=== PATIENT | female | born 1970 | race African-American/Black ===

== ENCOUNTER 2017-01-24 15:26 | Inpatient (IN) | payer MEDICAID ==
[~2017-01-24] VITALS: Ht 165.1 cm; Wt 65.5 kg
[~2017-01-24 15:26] MED LIST: ALBUAER3 IN; ALPR0.5T7 PO; BACL10TA PO; CARI-277 PO; DULO60CA PO; ESCI20TA51 PO; FENT25DI2 TD; GABA-494 PO; MELO-85 PO; NIC21P TD; PERCOT PO; QUET200T3 PO
[2017-01-24 16:05] LABS: DEFINITIVE VIEW TRANSMISSION; Hematocrit 41.5 % (36.0-46.0); Hemoglobin 13.6 g/dL (12.2-16.2); Mean Corpuscular Hemoglobin 26.4 pg (28.0-32.0); Mean Corpuscular Hgb Conc. 32.9 g/dL (32.0-36.0); Mean Corpuscular Volume 80.2 fL (80.0-100.0); Mean Platelet Volume 8.9 fL (7.4-10.4); Platelet Count (auto) 256 10^3/uL (140-450); Red Cell Distribution Width 13.6 % (11.6-16.0); SUSPECT VIEW TRANSMISSION; White Blood Cell 14.8 10^3/uL (4.4-10.8)
[2017-01-24] MEDS ORDERED: ALBUTEROL SULF 2.5 MG/0.5ML(0.5%) NEB SOLN HHN STA (16:05)
[2017-01-24 16:12] LABS: Metamyelocytes % 0; Myelocytes % 0; Promyelocytes % 0; Reactive Lymphocytes 0
[2017-01-24] MEDS ORDERED: methylPREDNISolone SOD SUCC 125 MG/2 ML VL IV ONE (16:15)
[2017-01-24] MEDS ORDERED: IPRATROPIUM BROM 0.5 MG/2.5ML INH SOL NEB ONE (16:15)
[2017-01-24 16:27] LABS: Albumin 4.2 g/dL (3.4-5.0); Anion Gap 12 (5-15); BUN/Creatinine Ratio 7.7; Blood Urea Nitrogen 6 mg/dL (7-18); Calcium 8.8 mg/dL (8.5-10.1); Carbon Dioxide 23 mmol/L (21-32); Chloride 106 mmol/L (98-107); GFR African American 102 mL/min; GFR Non-African American 84 mL/min; Glucose 106 mg/dL (74-106); Magnesium 2.2 mg/dL (1.6-2.6); Potassium 3.5 mmol/L (3.5-5.1); Sodium 141 mmol/L (136-145)
[2017-01-24 16:32] LABS: Alkaline Phosphatase 108 U/L (45-117); Aspartate Aminotransferase 15 U/L (15-37); Total Protein 8.4 g/dL (6.4-8.2)
[2017-01-24 17:31] LABS: Hypochromia Slight; Platelet Estimate Adequate
[2017-01-24] MEDS ORDERED: IPRATROPIUM BROM 0.5 MG/2.5ML INH SOL NEB PRN (19:00)
[2017-01-24] MEDS ORDERED: SODIUM CHLORIDE 0.9% 1,000 ML IV SCH (19:00)
[2017-01-24] MEDS ORDERED: ALBUTEROL SULF 2.5 MG/0.5ML(0.5%) NEB SOLN NEB PRN (19:00)
[2017-01-24] MEDS ORDERED: cefTRIAXone 1GM/50ML D5W 50 ML IV ONE (19:15)
[2017-01-24] MEDS ORDERED: ACETAMINOPHEN 325 MG TAB PO PRN (19:15)
[2017-01-24] MEDS ORDERED: SODIUM CHLORIDE 0.9% 1,000 ML IV ONE (19:15)
[2017-01-24] MEDS ORDERED: LORazepam 2MG/ML-1ML VIAL IV PRN (19:15)
[2017-01-24 19:50] LABS: Urine Bilirubin Negative (Negative); Urine Blood Negative /uL (Negative); Urine Color Yellow (Yellow); Urine Glucose Normal (Normal); Urine Nitrite Negative (Negative); Urine RBC <1 /hpf (0 - 4); Urine Squamous Epithelial Cell FEW /hpf (<5); Urine Urobilinogen Normal (Negative)
[2017-01-24 19:51] LABS: Urine Ketone 1+ (Negative)
[2017-01-24 21:44] VITALS: BP 124/83
[2017-01-24] MEDS: ALPRAZolam 0.5 MG TAB PO SCH (22:00)
[2017-01-24] MEDS ORDERED: BACLOFEN 10 MG TAB PO PRN (22:00)
[2017-01-24] MEDS: OXYCODONE W/ ACETAMINOPHEN 5/325MG TABLET PO SCH (22:00)
[2017-01-24] MEDS: GABAPENTIN 100 MG CAP PO SCH (22:00)
[2017-01-24] MEDS: CARISOPRODOL 350 MG TAB PO SCH (22:00)
[2017-01-24] MEDS ORDERED: MELOXICAM 7.5 MG PO PRN (22:00)
[2017-01-25 00:03] LABS: Lactic Acid w/Reflex 3.4 mmol/L (0.4-2.0)
[2017-01-25 00:07] LABS: REFLEX LACTIC ACID YES OR NO NO
[2017-01-25] MEDS: OXYCODONE W/ ACETAMINOPHEN 5/325MG TABLET PO SCH ×2 (05:40→14:08)
[2017-01-25] MEDS: GABAPENTIN 100 MG CAP PO SCH ×3 (05:40→14:08)
[2017-01-25] MEDS: CARISOPRODOL 350 MG TAB PO SCH ×3 (05:41→22:35)
[2017-01-25] MEDS: ALBUTEROL SULF 2.5 MG/0.5ML(0.5%) NEB SOLN NEB PRN ×2 (06:10→18:07)
[2017-01-25] MEDS: IPRATROPIUM BROM 0.5 MG/2.5ML INH SOL NEB PRN ×2 (06:10→18:07)
[2017-01-25 06:29] LABS: Basophils # (auto) 0 uL; Basophils % (auto) 0.4 % (0.0-2.0); DEFINITIVE VIEW TRANSMISSION; Eosinophils # (auto) 0 uL; Eosinophils % (auto) 0.1 % (0.0-7.0); Hematocrit 40.6 % (36.0-46.0); Hemoglobin 13.3 g/dL (12.2-16.2); Mean Corpuscular Hemoglobin 26.3 pg (28.0-32.0); Mean Corpuscular Hgb Conc. 32.8 g/dL (32.0-36.0); Mean Corpuscular Volume 80.4 fL (80.0-100.0); Mean Platelet Volume 9.4 fL (7.4-10.4); Monocytes # (auto) 0.1 uL; Monocytes % (auto) 1.1 % (0.0-12.0); Neutrophils # (auto) 10.7 uL; Neutrophils % (auto) 90.4 % (37.0-80.0); Platelet Count (auto) 259 10^3/uL (140-450); Red Cell Distribution Width 13.8 % (11.6-16.0); White Blood Cell 11.9 10^3/uL (4.4-10.8)
[2017-01-25 06:35] LABS: BUN/Creatinine Ratio 10.4; Calcium 9.5 mg/dL (8.5-10.1)
[2017-01-25] MEDS ORDERED: cefTRIAXone 1GM/50ML D5W 50 ML IV SCH (09:00)
[2017-01-25] MEDS ORDERED: PATIENTS OWN MEDICATION (Duloxetine Hcl (Cymbalta) 1 CAP) PO SCH (10:00)
[2017-01-25] MEDS ORDERED: VANCOMYCIN 1GM/250ML D5W 250 ML IV SCH (10:00)
[2017-01-25] MEDS ORDERED: PATIENTS OWN MEDICATION (Escitalopram Oxalate 1 TAB) PO SCH (10:00)
[2017-01-25] MEDS ORDERED: DULoxetine HCL 30 MG CAP PO SCH (10:00)
[2017-01-25] MEDS: ALPRAZolam 0.5 MG TAB PO SCH ×2 (10:26→22:34)
[2017-01-25] MEDS: PANTOPRAZOLE SODIUM 40 MG/10 ML VIAL IV SCH (10:26)
[2017-01-25] MEDS: CITALOPRAM HYDROBR 20 MG TAB PO SCH (10:26)
[2017-01-25] MEDS: VANCOMYCIN 1GM/250ML D5W 250 ML IV SCH ×2 (10:26→22:34)
[2017-01-25] MEDS: ENOXAPARIN SOD 40 MG/0.4 ML SYRINGE SC SCH (10:27)
[2017-01-25] MEDS: NICOTINE 21MG/24 HR TOPICAL PATCH TD SCH (10:27)
[2017-01-25 14:35] VITALS: BP 123/80
[2017-01-25] MEDS ORDERED: [UNRECOGNIZED DRUG - CODE] PO (15:36)
[2017-01-25] MEDS ORDERED: CYCL1TAB18 PO (15:37)
[2017-01-25] MEDS ORDERED: METF-312 PO (15:41)
[2017-01-25] MEDS ORDERED: CHOL200031 PO (15:41)
[2017-01-25] MEDS ORDERED: UMEC1INH IN (15:41)
[2017-01-25] MEDS ORDERED: GABA300C8 PO (15:41)
[2017-01-25] MEDS ORDERED: QUET400T12 PO (15:41)
[2017-01-25 16:00] VITALS: BP_SYST 123; BP_SYST 134; BP_DIAS 73; BP_DIAS 80
[2017-01-25] MEDS ORDERED: OXYCODONE W/ ACETAMINOPHEN 5/325MG TABLET PO PRN (16:00)
[2017-01-25] MEDS ORDERED: LACTULOSE 20Gm/30ML SOLN PO ONE (16:00)
[2017-01-25] MEDS: LACTULOSE 20Gm/30ML SOLN PO SCH (16:59)
[2017-01-25] MEDS ORDERED: QUETIAPINE FUMERATE PO SCH (18:00)
[2017-01-25] MEDS: BUDESONIDE (INHALATION) 0.5 MG/2 ML NEB NEB SCH (18:09)
[2017-01-25 20:00] VITALS: BP 115/66
[2017-01-25] MEDS: QUEtiapine FUMARATE 100 MG TAB PO SCH (22:34)
[2017-01-25] MEDS: GABAPENTIN 300 MG CAP PO SCH (22:35)
[2017-01-26 05:00] VITALS: BP 123/70
[2017-01-26] MEDS: LACTULOSE 20Gm/30ML SOLN PO SCH ×4 (06:00→17:40)
[2017-01-26 06:34] LABS: Albumin 3.3 g/dL (3.4-5.0); Calcium 8.6 mg/dL (8.5-10.1); Potassium 3.6 mmol/L (3.5-5.1)
[2017-01-26] MEDS: CARISOPRODOL 350 MG TAB PO SCH ×3 (06:36→21:52)
[2017-01-26 06:37] LABS: BUN/Creatinine Ratio 19.1
[2017-01-26 06:39] LABS: Bilirubin, Total 0.3 mg/dL (0.2-1.0); Total Protein 7.3 g/dL (6.4-8.2)
[2017-01-26] MEDS: BUDESONIDE (INHALATION) 0.5 MG/2 ML NEB NEB SCH ×2 (07:33→19:30)
[2017-01-26 09:00] VITALS: BP 112/84
[2017-01-26] MEDS: PANTOPRAZOLE SODIUM 40 MG/10 ML VIAL IV SCH (09:53)
[2017-01-26] MEDS: NICOTINE 21MG/24 HR TOPICAL PATCH TD SCH (09:53)
[2017-01-26] MEDS: CITALOPRAM HYDROBR 20 MG TAB PO SCH (09:53)
[2017-01-26] MEDS: ALPRAZolam 0.5 MG TAB PO SCH ×2 (09:53→21:52)
[2017-01-26] MEDS: ENOXAPARIN SOD 40 MG/0.4 ML SYRINGE SC SCH (09:53)
[2017-01-26] MEDS: GABAPENTIN 300 MG CAP PO SCH ×2 (09:53→21:52)
[2017-01-26] MEDS: VANCOMYCIN 1GM/250ML D5W 250 ML IV SCH (09:56)
[2017-01-26 12:53] VITALS: BP 109/70
[2017-01-26 16:53] VITALS: BP 103/67
[2017-01-26] MEDS: ALBUTEROL SULF 2.5 MG/0.5ML(0.5%) NEB SOLN NEB PRN (19:30)
[2017-01-26] MEDS: IPRATROPIUM BROM 0.5 MG/2.5ML INH SOL NEB PRN (19:30)
[2017-01-26] MEDS: QUEtiapine FUMARATE 100 MG TAB PO SCH (21:52)
[2017-01-26 21:58] VITALS: BP 111/77
[2017-01-26] MEDS ORDERED: DOXYCYCLINE 100 MG TAB/CAP PO SCH (22:00)
[2017-01-27 05:14] VITALS: BP 106/22
[2017-01-27] MEDS: LACTULOSE 20Gm/30ML SOLN PO SCH ×4 (06:00→18:26)
[2017-01-27] MEDS: ALBUTEROL SULF 2.5 MG/0.5ML(0.5%) NEB SOLN NEB PRN ×2 (06:04→21:47)
[2017-01-27] MEDS: BUDESONIDE (INHALATION) 0.5 MG/2 ML NEB NEB SCH ×2 (06:04→21:47)
[2017-01-27] MEDS: IPRATROPIUM BROM 0.5 MG/2.5ML INH SOL NEB PRN ×2 (06:04→21:47)
[2017-01-27] MEDS: CARISOPRODOL 350 MG TAB PO SCH ×3 (06:43→22:32)
[2017-01-27 09:00] VITALS: BP 105/76
[2017-01-27] MEDS: PANTOPRAZOLE 40 MG TAB PO SCH (10:26)
[2017-01-27] MEDS: CITALOPRAM HYDROBR 20 MG TAB PO SCH (10:26)
[2017-01-27] MEDS: NICOTINE 21MG/24 HR TOPICAL PATCH TD SCH (10:27)
[2017-01-27] MEDS: GABAPENTIN 300 MG CAP PO SCH ×2 (10:27→22:32)
[2017-01-27] MEDS: ALPRAZolam 0.5 MG TAB PO SCH ×2 (10:27→22:32)
[2017-01-27] MEDS: ENOXAPARIN SOD 40 MG/0.4 ML SYRINGE SC SCH (10:27)
[2017-01-27] MEDS: DOXYCYCLINE 100 MG TAB/CAP PO SCH ×2 (10:27→22:31)
[2017-01-27 13:00] VITALS: BP 102/61
[2017-01-27 17:30] VITALS: BP 113/76
[2017-01-27 21:30] VITALS: BP 128/65
[2017-01-27 21:49] VITALS: BP 113/76
[2017-01-27] MEDS: QUEtiapine FUMARATE 100 MG TAB PO SCH (22:31)
[2017-01-28 04:30] VITALS: BP 107/74
[2017-01-28] MEDS: LACTULOSE 20Gm/30ML SOLN PO SCH ×3 (06:06→12:00)
[2017-01-28] MEDS: CARISOPRODOL 350 MG TAB PO SCH ×2 (06:06→14:00)
[2017-01-28] MEDS: ALBUTEROL SULF 2.5 MG/0.5ML(0.5%) NEB SOLN NEB PRN ×3 (06:30→11:14)
[2017-01-28] MEDS: IPRATROPIUM BROM 0.5 MG/2.5ML INH SOL NEB PRN ×3 (06:30→11:14)
[2017-01-28] MEDS: BUDESONIDE (INHALATION) 0.5 MG/2 ML NEB NEB SCH (06:31)
[2017-01-28 09:00] VITALS: BP 99/64
[2017-01-28] MEDS: CITALOPRAM HYDROBR 20 MG TAB PO SCH (09:58)
[2017-01-28] MEDS: ALPRAZolam 0.5 MG TAB PO SCH (09:59)
[2017-01-28] MEDS: DOXYCYCLINE 100 MG TAB/CAP PO SCH (09:59)
[2017-01-28] MEDS: GABAPENTIN 300 MG CAP PO SCH (09:59)
[2017-01-28] MEDS: PANTOPRAZOLE 40 MG TAB PO SCH (09:59)
[2017-01-28] MEDS: NICOTINE 21MG/24 HR TOPICAL PATCH TD SCH (10:00)
[2017-01-28 11:22] VITALS: BP 99/64
[2017-01-28 13:00] VITALS: BP 107/73
== END 2017-01-28 14:20 | disposition home or self-care (01) | DRG 720 ==
LOC: ER 15:27 → TELE 15:28 → SUATTDRO 18:18 → DOU IN ICU 01-25 14:30 → TELE-WESTW 01-25 21:50
PROVIDERS: ADMIT Nurse Practitioner Acute Care; ATTEND Internal Medicine
DX: A41.9 Sepsis, unspecified organism (principal); J18.9 Pneumonia, unspecified organism; J44.0 Chronic obstructive pulmonary disease with (acute) lower respiratory infection; J44.1 Chronic obstructive pulmonary disease with (acute) exacerbation; F32.9 Major depressive disorder, single episode, unspecified; F41.9 Anxiety disorder, unspecified; M19.90 Unspecified osteoarthritis, unspecified site; J20.9 Acute bronchitis, unspecified; E11.9 Type 2 diabetes mellitus without complications; F17.210 Nicotine dependence, cigarettes, uncomplicated; G89.4 Chronic pain syndrome; J06.9 Acute upper respiratory infection, unspecified; M48.00 Spinal stenosis, site unspecified; B96.89 Other specified bacterial agents as the cause of diseases classified elsewhere; M51.9 Unspecified thoracic, thoracolumbar and lumbosacral intervertebral disc disorder; Z79.899 Other long term (current) drug therapy; Z82.3 Family history of stroke; Z82.49 Family history of ischemic heart disease and other diseases of the circulatory system; Z83.3 Family history of diabetes mellitus; Z82.5 Family history of asthma and other chronic lower respiratory diseases; Z98.49 Cataract extraction status, unspecified eye
CPT/HCPCS: 36415; 36600; 51702; 71010; 80048; 80053; 81001; 81025; 82805; 83036; 83605; 83735; 84484; 85007; 85025; 85027; 87040; 87081; 87086; 93005; 94640; 96365; 96372; 96375; C9113; J0696

== ENCOUNTER 2017-03-26 12:37 | Emergency (ER) | payer MEDICAID ==
[~2017-03-26] VITALS: Ht 154.9 cm; Wt 66.2 kg
[~2017-03-26 12:37] MED LIST changes: +CHOL200031 PO; +CYCL1TAB18 PO; -GABA-494 PO; +GABA-497 PO; +METF-370 PO; +OXYC-102 PO; -PERCOT PO; -QUET200T3 PO; +QUET400T12 PO; +UMEC1INH IN
[2017-03-26 12:55] VITALS: BP 128/74
== END 2017-03-26 15:11 | disposition home or self-care (01) ==
LOC: ER 12:37
DX: M13.841 Other specified arthritis, right hand (principal); F17.210 Nicotine dependence, cigarettes, uncomplicated; F12.10 Cannabis abuse, uncomplicated; J45.909 Unspecified asthma, uncomplicated; J44.9 Chronic obstructive pulmonary disease, unspecified; E11.9 Type 2 diabetes mellitus without complications; Z88.1 Allergy status to other antibiotic agents; Z79.899 Other long term (current) drug therapy

== ENCOUNTER 2017-07-19 18:34 | Emergency (ER) | payer MEDICAID ==
[~2017-07-19] VITALS: Ht 170.2 cm; Wt 59.0 kg
[2017-07-19 21:08] LABS: Hemoglobin 13.9 g/dL (12.2-16.2)
[2017-07-19 21:20] LABS: Basophils # (auto) 0.1 uL; Basophils % (auto) 0.9 % (0.0-2.0); Eosinophils # (auto) 0.2 uL; Eosinophils % (auto) 2.8 % (0.0-7.0); Hematocrit 41.1 % (36.0-46.0); Lymphocytes # (auto) 2.8 uL; Lymphocytes % (auto) 32.5 % (10.0-50.0); Mean Corpuscular Hemoglobin 27.6 pg (28.0-32.0); Mean Corpuscular Hgb Conc. 33.8 g/dL (32.0-36.0); Mean Corpuscular Volume 81.8 fL (80.0-100.0); Mean Platelet Volume 8.9 fL (6.9-10.8); Monocytes # (auto) 0.7 uL; Monocytes % (auto) 7.9 % (0.0-12.0); Neutrophils # (auto) 4.8 uL; Neutrophils % (auto) 55.9 % (37.0-80.0); Platelet Count (auto) 256 10^3/uL (140-450); Red Cell Distribution Width 13.8 % (11.8-14.3); White Blood Cell 8.6 10^3/uL (4.4-10.8)
[2017-07-19 21:41] LABS: Albumin 4.3 g/dL (3.4-5.0); Bilirubin, Total 0.6 mg/dL (0.2-1.0); Calcium 9.5 mg/dL (8.5-10.1); Potassium 3.8 mmol/L (3.5-5.1); Total Protein 8.5 g/dL (6.4-8.2)
[2017-07-20] MEDS ORDERED: KETOROLAC TROMETH 60MG/2ML VIAL IM ONE
[2017-07-20] MEDS ORDERED: ONDANSETRON ODT 4 MG TAB PO ONE
[2017-07-20] MEDS ORDERED: HYDROmorphone HCL 2 MG/ML VL IM ONE
[2017-07-20 01:02] LABS: Urine Bilirubin Negative (Negative); Urine Blood Negative /uL (Negative); Urine Color Yellow (Yellow); Urine Glucose Normal (Normal); Urine Ketone TRACE (Negative); Urine Mucus FEW (None Seen); Urine Nitrite Negative (Negative); Urine RBC 1 /hpf (0 - 4); Urine Squamous Epithelial Cell FEW /hpf (<5); Urine Urobilinogen Normal (Negative); Urine pH 5.5 (5.0-8.0)
[2017-07-20 01:45] VITALS: BP 125/72
[2017-07-20] MEDS ORDERED: DIAZEPAM 5 MG/ML 2ML SYRG IV ONE (02:00)
[2017-07-20] MEDS ORDERED: LORazepam 2MG/ML-1ML VIAL ONE (02:25)
[2017-07-20] MEDS ORDERED: LORazepam 2MG/ML-1ML VIAL IM ONE (02:30)
== END 2017-07-20 02:34 | disposition home or self-care (01) ==
LOC: EDBD 18:34 → ER 18:40
DX: M54.9 Dorsalgia, unspecified (principal); G89.29 Other chronic pain; G89.4 Chronic pain syndrome; M19.90 Unspecified osteoarthritis, unspecified site; J44.9 Chronic obstructive pulmonary disease, unspecified; E11.9 Type 2 diabetes mellitus without complications; F17.210 Nicotine dependence, cigarettes, uncomplicated; M79.1 Myalgia; Z88.1 Allergy status to other antibiotic agents; Z79.899 Other long term (current) drug therapy
CPT/HCPCS: 36415; 80053; 80307; 81001; 85025; 96372; 99284; J1170; J1885; J2060; Q0162

== ENCOUNTER 2018-01-06 00:51 | Emergency (ER) | payer MEDICAID ==
[~2018-01-06] VITALS: Ht 152.4 cm; Wt 56.7 kg
[~2018-01-06 00:51] MED LIST changes: -GABA-497 PO; +GABA300C10 PO; -MELO-85 PO; +MELO1TAB73 PO
[2018-01-06] MEDS ORDERED: ONDANSETRON HCL 4 MG/2 ML VIAL IV ONE (08:00)
[2018-01-06] MEDS ORDERED: SODIUM CHLORIDE 0.9% 1,000 ML IV ONE (08:00)
[2018-01-06] MEDS ORDERED: KETOROLAC TROMETH 30 MG/ML 1ML VIAL IV ONE (08:00)
[2018-01-06 08:49] LABS: Eosinophils # (auto) 0 uL; Eosinophils % (auto) 0.4 % (0.0-7.0); Hemoglobin 11.9 g/dL (12.2-16.2); Neutrophils # (auto) 6.3 uL
[2018-01-06 08:50] LABS: Basophils # (auto) 0 uL; Basophils % (auto) 0.2 % (0.0-2.0); Hematocrit 36.2 % (36.0-46.0); Lymphocytes % (auto) 22.5 % (10.0-50.0); Mean Corpuscular Hemoglobin 27.1 pg (28.0-32.0); Mean Corpuscular Volume 82.1 fL (80.0-100.0); Monocytes # (auto) 0.5 uL; Monocytes % (auto) 5.6 % (0.0-12.0); Neutrophils % (auto) 71.3 % (37.0-80.0); Platelet Count (auto) 218 10^3/uL (140-450); Red Blood Cells 4.41 10^6/uL (4.0-5.20); Red Cell Distribution Width 14.2 % (11.8-14.3); White Blood Cell 8.8 10^3/uL (4.4-10.8)
[2018-01-06 09:15] LABS: Albumin 3.9 g/dL (3.4-5.0); BUN/Creatinine Ratio 12.5; Calcium 8.7 mg/dL (8.5-10.1); Magnesium 2.5 mg/dL (1.6-2.6); Potassium 3.7 mmol/L (3.5-5.1)
[2018-01-06 09:17] LABS: Bilirubin, Total 0.5 mg/dL (0.2-1.0)
[2018-01-06 11:00] LABS: Urine Bacteria NONE SEEN /hpf (None Seen); Urine Blood Negative /uL (Negative); Urine Mucus FEW (None Seen); Urine Specific Gravity 1.023 (1.001-1.035); Urine WBC 3 /hpf (0 - 5)
[2018-01-06 11:12] VITALS: BP 118/78
== END 2018-01-06 11:48 | disposition home or self-care (01) ==
LOC: ER 00:51
DX: S00.83XA Contusion of other part of head, initial encounter (principal); E04.1 Nontoxic single thyroid nodule; M62.838 Other muscle spasm; J44.9 Chronic obstructive pulmonary disease, unspecified; E11.9 Type 2 diabetes mellitus without complications; M19.90 Unspecified osteoarthritis, unspecified site; Z79.899 Other long term (current) drug therapy; Z88.1 Allergy status to other antibiotic agents
CPT/HCPCS: 36415; 70450; 71046; 72125; 76536; 80053; 81001; 83735; 84443; 85025; 96361; 96374; 96375; 99285; J1885; J2405; J7030

== ENCOUNTER 2018-07-13 15:55 | Emergency (ER) | payer MEDICAID ==
[~2018-07-13] VITALS: Ht 152.4 cm; Wt 63.5 kg
[2018-07-13] MEDS ORDERED: SODIUM CHLORIDE 0.9% 500 ML IVB ONE (16:33)
[2018-07-13] MEDS ORDERED: PANTOPRAZOLE 40 MG/10 ML VIAL IV STA (16:33)
[2018-07-13] MEDS ORDERED: MORPHINE SULFATE 4 MG/ML SYR/VIAL IV ONE (16:45)
[2018-07-13] MEDS ORDERED: ONDANSETRON HCL 4 MG/2 ML VIAL IV ONE (16:45)
[2018-07-13 17:24] VITALS: BP 147/93
[2018-07-13 17:34] LABS: Basophils # (auto) 0.1 uL; Basophils % (auto) 0.8 % (0.0-2.0); Eosinophils # (auto) 0.2 uL; Eosinophils % (auto) 2.4 % (0.0-7.0); Hematocrit 42.8 % (36.0-46.0); Hemoglobin 14.1 g/dL (12.2-16.2); Lymphocytes # (auto) 3.5 uL; Mean Corpuscular Hemoglobin 28.7 pg (28.0-32.0); Mean Corpuscular Volume 86.9 fL (80.0-100.0); Monocytes # (auto) 0.5 uL; Neutrophils # (auto) 4.5 uL; Neutrophils % (auto) 50.8 % (37.0-80.0); Nucleated Red Blood Cells % 0.1 %; Platelet Count (auto) 300 10^3/uL (140-450); Red Blood Cells 4.93 10^6/uL (4.0-5.20); Red Cell Distribution Width 13.9 % (11.8-14.3); White Blood Cell 8.8 10^3/uL (4.4-10.8)
[2018-07-13 17:35] LABS: Alanine Aminotransferase 21 U/L (13-56); Albumin 3.9 g/dL (3.4-5.0); Amylase 129 U/L (25-115); Anion Gap 11 (5-15); Aspartate Aminotransferase 20 U/L (15-37); BUN/Creatinine Ratio 9.8; Blood Urea Nitrogen 9 mg/dL (7-18); Calcium 9.2 mg/dL (8.5-10.1); Carbon Dioxide 20 mmol/L (21-32); Chloride 107 mmol/L (98-107); GFR African American 83 mL/min; GFR Non-African American 69 mL/min; Glucose 81 mg/dL (74-106); Lipase 363 U/L (73-393); Magnesium 2.1 mg/dL (1.6-2.6); Potassium 3.6 mmol/L (3.5-5.1); Sodium 138 mmol/L (136-145)
[2018-07-13 17:40] LABS: Alkaline Phosphatase 69 U/L (45-117); Bilirubin, Total 0.3 mg/dL (0.2-1.0); Total Protein 8.2 g/dL (6.4-8.2)
== END 2018-07-13 20:08 | disposition home or self-care (01) ==
LOC: ER 15:59
DX: K29.70 Gastritis, unspecified, without bleeding (principal); J44.9 Chronic obstructive pulmonary disease, unspecified; F32.9 Major depressive disorder, single episode, unspecified; E11.9 Type 2 diabetes mellitus without complications; F20.9 Schizophrenia, unspecified; F41.9 Anxiety disorder, unspecified; M19.90 Unspecified osteoarthritis, unspecified site; F17.210 Nicotine dependence, cigarettes, uncomplicated; Z98.51 Tubal ligation status; Z88.1 Allergy status to other antibiotic agents
CPT/HCPCS: 36415; 76705; 80053; 82150; 82962; 83690; 83735; 84484; 85025; 94761; 96361; 96374; 96375; 99285; C9113; J2270; J2405; J7030

== ENCOUNTER 2019-07-12 09:57 | Inpatient (IN) | payer BC, MEDICAID ==
[~2019-07-12] VITALS: Ht 152.4 cm; Wt 79.7 kg
[2019-07-12] MEDS ORDERED: SODIUM CHLORIDE 0.9% 1,000 ML IV ONE (10:12)
[2019-07-12 12:19] LABS: Basophils # (auto) 0.1 uL; Basophils % (auto) 1.1 % (0.0-2.0); Eosinophils # (auto) 0.2 uL; Eosinophils % (auto) 1.7 % (0.0-7.0); Hematocrit 42.8 % (36.0-46.0); Lymphocytes # (auto) 2.4 uL; Lymphocytes % (auto) 21.6 % (10.0-50.0); Mean Corpuscular Hemoglobin 28.1 pg (28.0-32.0); Mean Corpuscular Hgb Conc. 32.7 g/dL (32.0-36.0); Mean Corpuscular Volume 85.9 fL (80.0-100.0); Monocytes # (auto) 0.7 uL; Neutrophils # (auto) 7.6 uL; Neutrophils % (auto) 69.6 % (37.0-80.0); Nucleated Red Blood Cells % 0.1 %; Platelet Count (auto) 248 10^3/uL (140-450); Red Blood Cells 4.98 10^6/uL (4.0-5.20); Red Cell Distribution Width 14.4 % (11.8-14.3); White Blood Cell 10.9 10^3/uL (4.4-10.8)
[2019-07-12 12:39] LABS: Chloride 107 mmol/L (98-107); Potassium 3.8 mmol/L (3.5-5.1); Sodium 140 mmol/L (136-145)
[2019-07-12 12:53] LABS: Alanine Aminotransferase 24 U/L (13-56); Alkaline Phosphatase 66 U/L (45-117); Anion Gap 8 (5-15); Aspartate Aminotransferase 12 U/L (15-37); BUN/Creatinine Ratio 6.7; Bilirubin, Total 0.3 mg/dL (0.2-1.0); Blood Alcohol < 3.0 mg/dL (0-5); Blood Urea Nitrogen 6 mg/dL (7-18); Calcium 9.2 mg/dL (8.5-10.1); Carbon Dioxide 25 mmol/L (21-32); GFR African American 86 mL/min; GFR Non-African American 71 mL/min; Glucose 81 mg/dL (74-106); Magnesium 2.2 mg/dL (1.6-2.6)
[2019-07-12 13:43] LABS: Alcohol, Urine < 3.0 mg/dL (0-5); Amphetamine Screen, Urine NEGATIVE (NEGATIVE); Barbiturate Scree,Urine NEGATIVE (NEGATIVE); Benzodiazephine Screen, Urine NEGATIVE (NEGATIVE); Cannabinoid Screen, Urine POSITIVE (NEGATIVE); Cocaine Screen, Urine NEGATIVE (NEGATIVE); Opiate Scree,Urine NEGATIVE (NEGATIVE); Phencyclidine Screen, Urine NEGATIVE (NEGATIVE)
[2019-07-12 15:14] LABS: Urine Bacteria FEW /hpf (None Seen); Urine Blood Negative /uL (Negative); Urine Specific Gravity 1.009 (1.001-1.035); Urine WBC 4 /hpf (0 - 5)
[2019-07-12] MEDS ORDERED: AZITHROMYCIN 500MG/ 250ML 250 ML IV ONE (15:45)
[2019-07-12] MEDS ORDERED: DEXTROSE (50%) 50ML SYRG IV PRN (15:45)
[2019-07-12] MEDS ORDERED: cefTRIAXone 1GM/50ML D5W 50 ML IV ONE (15:45)
[2019-07-12] MEDS ORDERED: ACETAMINOPHEN 500 MG TAB PO PRN (15:45)
[2019-07-12] MEDS ORDERED: NITROGLYCERIN 0.4 MG SL TAB SL PRN (15:45)
[2019-07-12] MEDS ORDERED: MORPHINE SULF INJ 2 MG/ML SYRINGE 1ML IV PRN (15:45)
[2019-07-12] MEDS: SODIUM CHLORIDE 0.9% 1,000 ML IV SCH ×2 (16:13→23:02)
[2019-07-12] MEDS: InsuLIN REG 1unit/0.01ml Soln (100units/ml) SC SCH ×2 (17:00→21:17)
[2019-07-12] MEDS: ACCU-CHEK COMFORT CURVE STRIP VI SCH ×2 (17:00→21:17)
--- NOTE | 2019-07-12 17:25 | NUR ---
Telemetry admit from [facility] admitted to Telemetry unit. Patient oriented to LIBIA TYLER RN primary RN, unit, room, bed, and unit policies regarding patient care and visiting hours. Patient now on continuous telemetry monitoring, tele box # [id number] and telemetry reading on arrival to unit is sinus rhythm . Patient on room air, denies shortness of breath at this time. Patient denies pain at thsi time. Reviewed plan of care with patient, patient verbalized understanding. Bed in low and locked position, radha light within reach. Will continue to monitor Q1 hour and PRN. Family at bedside
[2019-07-12] MEDS: IPRATROPIUM BROM 0.5 MG/2.5ML INH SOL NEB SCH (19:14)
[2019-07-12] MEDS: ALBUTEROL SULF 2.5 MG/0.5ML(0.5%) NEB SOLN NEB SCH (19:15)
--- NOTE | 2019-07-12 19:31 | NUR ---
Closing Note Report given to warehouse worker 2nd shift RN. No signs or symptoms of distress noted at this time.
--- NOTE | 2019-07-12 19:45 | NUR ---
Opening Shift Note Assumed care of patient, awake and alert. No S/S of distress/SOB or pain. Instructed on POC and to call for assist PRN, will continue to monitor for changes Q1hr and PRN.Requested pain med for back pain.
--- NOTE | 2019-07-12 19:57 | NUR ---
Bernard hospitalist Gerald for pain medicine order for back pain, with order of ultram 50mg.every 6 hours as needed and gabapentin 300mg.p.o b.i.d.
[2019-07-12 20:42] VITALS: BP 136/71
[2019-07-12] MEDS: traMADol HCL 50 MG TAB PO PRN (21:17)
[2019-07-12] MEDS: GABAPENTIN 300 MG CAP PO SCH (21:18)
[2019-07-12 22:00] VITALS: BP 124/73
[2019-07-13 05:16] VITALS: BP 128/81
[2019-07-13] MEDS: InsuLIN REG 1unit/0.01ml Soln (100units/ml) SC SCH ×4 (06:06→22:37)
[2019-07-13] MEDS: ACCU-CHEK COMFORT CURVE STRIP VI SCH ×4 (06:06→22:37)
[2019-07-13] MEDS: IPRATROPIUM BROM 0.5 MG/2.5ML INH SOL NEB SCH ×3 (06:09→18:58)
[2019-07-13 06:10] LABS: Basophils # (auto) 0.1 uL; Basophils % (auto) 1.4 % (0.0-2.0); Eosinophils # (auto) 0.4 uL; Eosinophils % (auto) 5.5 % (0.0-7.0); Hemoglobin 13.7 g/dL (12.2-16.2); Lymphocytes # (auto) 2.2 uL; Lymphocytes % (auto) 32.9 % (10.0-50.0); Mean Corpuscular Hemoglobin 28.4 pg (28.0-32.0); Mean Corpuscular Hgb Conc. 33.4 g/dL (32.0-36.0); Mean Corpuscular Volume 85.2 fL (80.0-100.0); Monocytes # (auto) 0.4 uL; Monocytes % (auto) 5.8 % (0.0-12.0); Neutrophils # (auto) 3.6 uL; Neutrophils % (auto) 54.4 % (37.0-80.0); Platelet Count (auto) 243 10^3/uL (140-450); Red Blood Cells 4.81 10^6/uL (4.0-5.20); Red Cell Distribution Width 14.2 % (11.8-14.3); White Blood Cell 6.6 10^3/uL (4.4-10.8)
[2019-07-13] MEDS: ALBUTEROL SULF 2.5 MG/0.5ML(0.5%) NEB SOLN NEB SCH ×3 (06:10→18:58)
[2019-07-13 06:31] LABS: Calcium 9.1 mg/dL (8.5-10.1); Potassium 4.1 mmol/L (3.5-5.1)
[2019-07-13 06:33] LABS: BUN/Creatinine Ratio 8.5
--- NOTE | 2019-07-13 07:22 | NUR ---
Care report given to Gabino Rico, patient is resting no distress.
--- NOTE | 2019-07-13 08:10 | NUR ---
OPENING SHIFT NOTE: PATIENT AWAKE IN BED. BREATHING EVEN AND UNLABORED RESPIRATIONS. PATIENT EXPRESSED ANXIETY WITH NOT HAVING HOME MEDS GIVEN DURING HOSPITAL STAY. C/O PAIN UNRELIEVED WITH PRESCRIBED ULTRAM. PATIENT REPORTS TAKING PERCOCET AT HOME 3X/DAY. DISCUSSED PLAN OF CARE WITH PATIENT. EDUCATED ON USE OF CALL LIGHT FOR ASSISTANCE. COMMODE AT BEDSIDE. WILL CONTINUE TO MONITOR.
[2019-07-13] MEDS: cefTRIAXone 1GM/50ML D5W 50 ML IV SCH (08:41)
[2019-07-13] MEDS: traMADol HCL 50 MG TAB PO PRN (08:42)
[2019-07-13 09:00] VITALS: BP 130/82
--- NOTE | 2019-07-13 10:26 | NUR ---
CALL TO DR. Laron PRYOR: VOICEMAIL LEFT REGARDING PATIENTS HOME MEDICATIONS. COMPLAINS OF PAIN IN SPINE 05/21 WITHOUT RELIEF FROM PRESCRIBED ULTRAM.
[2019-07-13] MEDS ORDERED: ALPRAZolam 0.5 MG TAB PO PRN (11:30)
[2019-07-13] MEDS: SODIUM CHLORIDE 0.9% 1,000 ML IV SCH (11:30)
[2019-07-13] MEDS: AZITHROMYCIN 500MG/ 250ML 250 ML IV SCH (12:21)
[2019-07-13] MEDS: GABAPENTIN 300 MG CAP PO SCH ×2 (12:22→22:35)
--- NOTE | 2019-07-13 12:30 | NUR ---
IV IN LEFT HAND DISCONTINUED. MANUAL PRESSURE APPLIED, CATHETER INTACT. NEW IV IN RIGHT FOREARM, 20G.
[2019-07-13 13:00] VITALS: BP 125/95
--- NOTE | 2019-07-13 15:20 | NUR ---
ASSISTED PATIENT WITH BED BATH. NEW GOWN GIVEN, ADDRESSED ALL CONCERNS AT THIS TIME.
[2019-07-13 17:00] VITALS: BP 124/80
--- NOTE | 2019-07-13 18:33 | NUR ---
CLOSING SHIFT NOTE: PATIENT RESTING IN BED. NO COMPLAINTS OF PAIN AT THIS TIME. BREATHING EVEN AND UNLABORED. CALL LIGHT WITHIN REACH. WILL ENDORSE CARE TO NOC RN.
--- NOTE | 2019-07-13 19:23 | NUR ---
CARE ENDORSED TO ANNAMARIA MELCHOR
--- NOTE | 2019-07-13 19:29 | NUR ---
Opening Shift Note Assumed care of patient, awake and alert. No S/S of distress/SOB or pain. Instructed on POC and to call for assist PRN, will continue to monitor for changes Q1hr and PRN.
[2019-07-13] MEDS: OXYCODONE W/ ACETAMINOPHEN 5/325MG TABLET PO PRN (20:29)
[2019-07-13 22:00] VITALS: BP 125/77
[2019-07-14] MEDS: SODIUM CHLORIDE 0.9% 1,000 ML IV SCH (00:50)
[2019-07-14 05:52] VITALS: BP 121/72
[2019-07-14] MEDS: ACCU-CHEK COMFORT CURVE STRIP VI SCH ×4 (06:40→21:36)
[2019-07-14] MEDS: InsuLIN REG 1unit/0.01ml Soln (100units/ml) SC SCH ×4 (06:41→21:36)
[2019-07-14] MEDS: IPRATROPIUM BROM 0.5 MG/2.5ML INH SOL NEB SCH ×3 (07:10→18:38)
[2019-07-14] MEDS: ALBUTEROL SULF 2.5 MG/0.5ML(0.5%) NEB SOLN NEB SCH ×3 (07:10→18:38)
--- NOTE | 2019-07-14 07:25 | NUR ---
SHIFT CLOSING NOTE. ENDORSED CARE OF PATIENT TO DAY SHIFT, JILL JIN.
--- NOTE | 2019-07-14 07:30 | NUR ---
OPENING SHIFT NOTE: PATIENT AWAKE IN BED, SITTING UP, RECEIVING A BREATHING TREATMENT. NO COMPLAINTS OF PAIN AT THIS TIME. BREATHING EVEN AND UNLABORED. CALL LIGHT WITHIN REACH. WILL CONTINUE TO MONITOR.
[2019-07-14 08:42] VITALS: BP 128/73
[2019-07-14] MEDS: AZITHROMYCIN 500MG/ 250ML 250 ML IV SCH (09:34)
[2019-07-14] MEDS: cefTRIAXone 1GM/50ML D5W 50 ML IV SCH (09:34)
[2019-07-14] MEDS: GABAPENTIN 300 MG CAP PO SCH ×2 (09:34→21:35)
--- NOTE | 2019-07-14 11:17 | NUR ---
PATIENT AMBULATED DOWNSTAIRS WITH FAMILY. FAMILY BROUGHT BACK TO ROOM VIA WHEELCHAIR, DUE TO EXHAUSTION. NASAL CANNULA APPLIED AT 2L, BREATHING EVEN, AND NO SIGN OF DISTRESS NOTED.
[2019-07-14] MEDS ORDERED: NICOTINE 21MG/24 HR TOPICAL PATCH TD ONE (11:30)
[2019-07-14] MEDS ORDERED: BUDESONIDE (INHALATION) 0.5 MG/2 ML NEB NEB ONE (11:30)
[2019-07-14] MEDS ORDERED: methylPREDNISolone SOD SUCC 125 MG/2 ML VL IV ONE (11:30)
--- NOTE | 2019-07-14 11:58 | NUR ---
TELE BOX RETURNED TO MONITOR/CARDIO UNIT
[2019-07-14 13:21] VITALS: BP 126/81
[2019-07-14 16:54] VITALS: BP 131/83
--- NOTE | 2019-07-14 17:21 | NUR ---
PATIENT SHOWERED, NOW BACK IN BED, WEARING NASAL CANNULA. NO SIGNS OF DISTRESS.
--- NOTE | 2019-07-14 18:19 | NUR ---
CLOSING SHIFT NOTE: PATIENT RESTING IN BED, NO SIGNS OF DISTRESS, NO COMPLAINTS OF PAIN. BED IN LOWEST LOCKED POSITION. CALL LIGHT WITHIN REACH. WILL ENDORSE CARE TO NOC RN.
[2019-07-14] MEDS: BUDESONIDE (INHALATION) 0.5 MG/2 ML NEB NEB SCH (18:38)
--- NOTE | 2019-07-14 18:42 | NUR ---
RT NOTE PT WAS SEEN BY RT FOR HHN TX. PT TOLERATES WELL VIA MASK. NO ADVERSE REACTION NOTED. CONT ORDERED Addendum: 07/14/19 at 1843 by Romy Tao RT Amended: Links added.
--- NOTE | 2019-07-14 19:15 | NUR ---
CARE ENDORSED TO ASHLEY MELCHOR.
--- NOTE | 2019-07-14 19:35 | NUR ---
Opening Shift Note Assumed care of patient, awake and alert. No S/S of distress/SOB but complains of 7/10 lower back pain. The patient requests pain medication alleviate her pain. Will treat with PRN pain medication. Instructed on POC and to call for assist PRN, will continue to monitor for changes Q1hr and PRN.
--- NOTE | 2019-07-14 19:40 | NUR ---
PAIN ASSESSMENT The patient complains of lower back pain. She reports that her pain is a 7/10 in severity. Will treat with PRN pain medication.
[2019-07-14] MEDS: OXYCODONE W/ ACETAMINOPHEN 5/325MG TABLET PO PRN (19:48)
[2019-07-14 21:55] VITALS: BP 135/88
[2019-07-15 04:42] VITALS: BP 125/74
[2019-07-15] MEDS: OXYCODONE W/ ACETAMINOPHEN 5/325MG TABLET PO PRN (06:14)
[2019-07-15] MEDS: InsuLIN REG 1unit/0.01ml Soln (100units/ml) SC SCH ×3 (06:38→17:20)
[2019-07-15] MEDS: ACCU-CHEK COMFORT CURVE STRIP VI SCH ×3 (06:38→17:20)
[2019-07-15] MEDS: IPRATROPIUM BROM 0.5 MG/2.5ML INH SOL NEB SCH ×3 (07:00→11:49)
[2019-07-15] MEDS: BUDESONIDE (INHALATION) 0.5 MG/2 ML NEB NEB SCH (07:00)
[2019-07-15] MEDS: ALBUTEROL SULF 2.5 MG/0.5ML(0.5%) NEB SOLN NEB SCH ×3 (07:00→11:49)
--- NOTE | 2019-07-15 07:50 | NUR ---
IV removal Patient had left forearm IV and right forearm IV both not patent and infiltrated. DC'd with clean sterile technique, catheter fully intact. Pressure dressing applied to site. Patient tolerated well. NOTE:
[2019-07-15 08:00] VITALS: BP 107/61
[2019-07-15 09:00] VITALS: BP 138/78
[2019-07-15] MEDS: cefTRIAXone 1GM/50ML D5W 50 ML IV SCH (09:39)
[2019-07-15] MEDS: GABAPENTIN 300 MG CAP PO SCH (09:42)
[2019-07-15] MEDS ORDERED: NICOTINE 21MG/24 HR TOPICAL PATCH TD SCH (10:00)
[2019-07-15] MEDS ORDERED: predniSONE 20 MG TAB PO SCH (10:00)
[2019-07-15] MEDS: AZITHROMYCIN 500MG/ 250ML 250 ML IV SCH (10:46)
--- NOTE | 2019-07-15 11:50 | NUR ---
Ambulated patient with stand by assistance from RN and RT Sarah, Patient was on room air, O2 saturation 97% while ambulating. At 75 feet pain started to cry stating she was having pain and tightness in chest was placed in wheelchair and taken back to room, O2 saturation 97% at that time. Post ambulation V/S b/p 131/82 HR 112 O2 sat 98%. Will notify Doctor Mark.
--- NOTE | 2019-07-15 12:05 | NUR ---
Notified Doctor Mark of patients tightness of chest on ambulation performed EKG per protocol read and signed by doctor Flores. Per Mark EKG okay and to discharge patient.
[2019-07-15 13:00] VITALS: BP 120/78
--- NOTE | 2019-07-15 17:28 | NUR ---
Discharge instructions given as ordered. Encourage to follow up with PMD as instructed. All questions and concerns addressed. Patient verbalized understanding. Prescription given to patient. No home medications held in Pharmacy and returned to patient, and no needed vaccines given. IV removed with catheter intact, pressure dressing applied. Patient taken to vehicle via wheelchair with all personal belongings, accompanied by staff . No distress noted at time of departure.
== END 2019-07-15 17:28 | disposition home or self-care (01) | DRG 193 ==
LOC: EDBD 09:57 → ER 09:57 → TELE 09:58 → TELE-CENTR 17:25 → CENTRAL 07-14 12:02
PROVIDERS: ADMIT Internal Medicine; ATTEND Internal Medicine
DX: J18.9 Pneumonia, unspecified organism (principal); J96.00 Acute respiratory failure, unspecified whether with hypoxia or hypercapnia; J44.1 Chronic obstructive pulmonary disease with (acute) exacerbation; J44.0 Chronic obstructive pulmonary disease with (acute) lower respiratory infection; N39.0 Urinary tract infection, site not specified; E11.9 Type 2 diabetes mellitus without complications; E66.9 Obesity, unspecified; F17.210 Nicotine dependence, cigarettes, uncomplicated; F20.9 Schizophrenia, unspecified; F32.9 Major depressive disorder, single episode, unspecified; F41.9 Anxiety disorder, unspecified; G89.29 Other chronic pain; I10 Essential (primary) hypertension; Z68.34 Body mass index [BMI] 34.0-34.9, adult; Z88.8 Allergy status to other drugs, medicaments and biological substances; Z71.6 Tobacco abuse counseling
CPT/HCPCS: 36415; 70450; 71045; 80048; 80053; 80307; 80320; 81001; 82962; 83036; 83735; 83880; 84484; 85025; 93005; 93306; 94640; 94761; 96365; 96367; 96375; G0378; J0696; J1815

== ENCOUNTER 2019-07-18 07:12 | Emergency (ER) | payer BC ==
[~2019-07-18] VITALS: Ht 152.4 cm; Wt 72.6 kg
[2019-07-18 08:20] VITALS: BP 121/72
== END 2019-07-18 09:30 | disposition home or self-care (01) ==
LOC: ER 07:22
DX: M79.642 Pain in left hand (principal); J44.9 Chronic obstructive pulmonary disease, unspecified; E11.9 Type 2 diabetes mellitus without complications; M19.90 Unspecified osteoarthritis, unspecified site; F17.210 Nicotine dependence, cigarettes, uncomplicated; F12.10 Cannabis abuse, uncomplicated; Z88.1 Allergy status to other antibiotic agents; Z79.899 Other long term (current) drug therapy; Z98.51 Tubal ligation status
CPT/HCPCS: 73630

== ENCOUNTER 2019-09-11 10:53 | Inpatient (IN) | payer BC ==
[~2019-09-11] VITALS: Ht 152.4 cm; Wt 73.2 kg
[2019-09-11 11:20] LABS: Basophils # (auto) 0.1 uL; Basophils % (auto) 0.7 % (0.0-2.0); Eosinophils # (auto) 0.1 uL; Eosinophils % (auto) 0.6 % (0.0-7.0); Hematocrit 42.6 % (36.0-46.0); Hemoglobin 14.2 g/dL (12.2-16.2); Lymphocytes # (auto) 3.1 uL; Lymphocytes % (auto) 21.8 % (10.0-50.0); Mean Corpuscular Hemoglobin 28.5 pg (28.0-32.0); Mean Corpuscular Hgb Conc. 33.4 g/dL (32.0-36.0); Mean Corpuscular Volume 85.3 fL (80.0-100.0); Monocytes # (auto) 0.9 uL; Neutrophils # (auto) 10.2 uL; Neutrophils % (auto) 70.9 % (37.0-80.0); Nucleated Red Blood Cells % 0.1 %; Platelet Count (auto) 243 10^3/uL (140-450); Red Blood Cells 4.99 10^6/uL (4.0-5.20); Red Cell Distribution Width 13.8 % (11.8-14.3); White Blood Cell 14.4 10^3/uL (4.4-10.8)
[2019-09-11 11:37] LABS: Albumin 4.1 g/dL (3.4-5.0); Calcium 8.8 mg/dL (8.5-10.1); Potassium 3.6 mmol/L (3.5-5.1)
[2019-09-11 11:41] LABS: BUN/Creatinine Ratio 5.6; Bilirubin, Total 0.5 mg/dL (0.2-1.0)
[2019-09-11] MEDS ORDERED: SODIUM CHLORIDE 0.9% 1,000 ML IVB ONE (11:50)
[2019-09-11] MEDS ORDERED: MORPHINE SULFATE 4 MG/ML SYR/VIAL IV ONE (12:00)
[2019-09-11] MEDS ORDERED: ONDANSETRON HCL 4 MG/2 ML VIAL IV ONE (12:00)
[2019-09-11 12:51] LABS: Urine Bacteria NONE SEEN /hpf (None Seen); Urine Blood Negative /uL (Negative); Urine Mucus FEW (None Seen); Urine Specific Gravity 1.013 (1.001-1.035); Urine WBC 3 /hpf (0 - 5)
[2019-09-11] MEDS ORDERED: PIPERACILLIN-TAZOB 3.375GM 100 ML IV ONE (13:00)
[2019-09-11] MEDS ORDERED: ONDANSETRON HCL 4 MG/2 ML VIAL IV PRN ×2 (13:45→14:30)
[2019-09-11] MEDS: cefTRIAXone 1GM/50ML D5W 50 ML IV SCH (13:46)
[2019-09-11 13:55] LABS: INR 1.07 (0.9-1.15); Partial Thromboplastin Time 23.4 sec (23.64-32.05)
[2019-09-11] MEDS ORDERED: LIDOCAINE 1% (LOCAL ANESTH.) PF 5ml SDV ONE (14:00)
[2019-09-11] MEDS: metroNIDAZOLE 500MG/100ML 100 ML IV SCH ×2 (14:00→22:19)
[2019-09-11] MEDS ORDERED: DEXTROSE (50%) 50ML SYRG IV PRN (14:00)
[2019-09-11] MEDS ORDERED: ROCURONIUM 10MG/ML 10ML VIAL IV ONE (14:01)
[2019-09-11] MEDS ORDERED: ETOMIDATE (2MG/ML) 20ML VIAL IV ONE (14:01)
[2019-09-11] MEDS ORDERED: ALBUTEROL SULF 2.5 MG/0.5ML(0.5%) NEB SOLN NEB PRN (14:15)
[2019-09-11] MEDS ORDERED: IPRATROPIUM BROM 0.5 MG/2.5ML INH SOL NEB PRN (14:15)
[2019-09-11] MEDS ORDERED: SUCCINYLCHOLINE CHLORIDE 20 MG/ML 10ML VIAL IV ONE (14:28)
[2019-09-11] MEDS ORDERED: hydrALAZINE HCL 20 MG/ML VL IV PRN (14:30)
[2019-09-11] MEDS ORDERED: ACCU-CHEK COMFORT CURVE STRIP VI ONE (14:30)
[2019-09-11] MEDS ORDERED: HYDROmorphone HCL 2 MG/ML VL IV PRN (14:30)
[2019-09-11] MEDS ORDERED: NALOXONE HCL 0.4 MG/ML VIAL IV PRN (14:30)
[2019-09-11] MEDS ORDERED: MIDAZOLAM HCL 1MG/1ML-2 ML VIAL ONE (14:39)
[2019-09-11] MEDS ORDERED: fentaNYL CITRATE 100 MCG/2 ML VL ONE (14:54)
[2019-09-11] MEDS ORDERED: METOCLOPRAMIDE HCL 5MG/ml INJ 2ml VIAL ONE (14:54)
[2019-09-11] MEDS ORDERED: hydrALAZINE HCL 20 MG/ML VL ONE (15:11)
[2019-09-11] MEDS ORDERED: NEOSTIGMINE 1 MG/ML INJ (10mg/10ML VIAL) ONE (15:12)
[2019-09-11] MEDS ORDERED: GLYCOPYRROLATE 0.2 MG/ML 1ML VIAL ONE (15:12)
[2019-09-11] MEDS ORDERED: KETOROLAC TROMETH 30 MG/ML 1ML VIAL ONE (15:14)
[2019-09-11 15:17] VITALS: BP 155/90
[2019-09-11] MEDS: HYDROmorphone HCL 2 MG/ML VL IV PRN ×4 (16:25→16:55)
--- NOTE | 2019-09-11 17:04 | NUR ---
Bed Assignment RM 298B Nurse: JILL Tipton
--- NOTE | 2019-09-11 17:25 | NUR ---
Pt Arrived On Unit Pt arrived on unit via gurney from PACU. Pt is a/ox4 with no s/s of distress or SOB. Pt has 3 incisions, which are clean, dry and intact. Pt has TALA drain to abdomen; currently has 20 mL of serous/sanguinous fluid. Abdominal binder is present. Safety measures maintained with call light within reach, bed in lowest position and side rails up. Will continue to monitor for changes q1hr and prn.
[2019-09-11] MEDS: InsuLIN REG 1unit/0.01ml Soln (100units/ml) SC SCH (18:00)
[2019-09-11] MEDS: SOD CHL 0.9%/ KCL 20MEQ 1,000 ML IV SCH ×2 (18:06→23:45)
[2019-09-11] MEDS: ACCU-CHEK COMFORT CURVE STRIP VI SCH (18:07)
[2019-09-11 18:08] VITALS: BP 116/70
--- NOTE | 2019-09-11 19:25 | NUR ---
Opening Shift Note Assumed care of patient, awake and alert. No S/S of distress/SOB. Patient complain of pain 05/21. Will administer medication PRN due to MD orders. Instructed on POC and to call for assist PRN, will continue to monitor for changes Q1hr and PRN. Family at bedside.
[2019-09-11] MEDS: MORPHINE SULF INJ 2 MG/ML SYRINGE 1ML IV PRN (19:56)
[2019-09-11 20:00] VITALS: BP 115/69
[2019-09-11 22:00] VITALS: BP 115/69
[2019-09-11] MEDS: FAMOTIDINE (10MG/ML) 2ML VL IV SCH (22:19)
--- NOTE | 2019-09-11 22:30 | NUR ---
Respiratory note:ASSESSED PT FOR PRN MED NEB AT THIS TIME, PT DENIES SOB AT THIS TIME, NO RESP DISTRESS NOTED, NO TX INDICATED. PULSE OX 98% ON RA, HR 91, RR 20, BILATERAL BS CLEAR
--- NOTE | 2019-09-11 23:25 | NUR ---
RH IV insertion IV access obtained, via clean sterile technique by inserting 22 gauge catheter at after 1 attempt. IV secured properly. No trauma to site. Patient tolerated well.
--- NOTE | 2019-09-11 23:30 | NUR ---
LH IV removal IV DC'd with clean sterile technique, catheter fully intact. Pressure dressing applied to site. Patient tolerated well.
[2019-09-12] VITALS (8 sets, daily range): BP systolic 114–158; BP diastolic 70–89
[2019-09-12] MEDS: MORPHINE SULF INJ 2 MG/ML SYRINGE 1ML IV PRN ×3 (00:39→09:24)
[2019-09-12] MEDS: ACCU-CHEK COMFORT CURVE STRIP VI SCH ×4 (00:40→17:27)
[2019-09-12] MEDS: metroNIDAZOLE 500MG/100ML 100 ML IV SCH ×3 (05:27→22:02)
[2019-09-12] MEDS: InsuLIN REG 1unit/0.01ml Soln (100units/ml) SC SCH ×4 (05:38→17:27)
[2019-09-12 06:57] LABS: Basophils # (auto) 0.1 uL; Basophils % (auto) 0.6 % (0.0-2.0); Eosinophils # (auto) 0.1 uL; Eosinophils % (auto) 0.8 % (0.0-7.0); Hematocrit 38.7 % (36.0-46.0); Hemoglobin 13.2 g/dL (12.2-16.2); Lymphocytes # (auto) 2.1 uL; Lymphocytes % (auto) 20.9 % (10.0-50.0); Mean Corpuscular Hemoglobin 28.9 pg (28.0-32.0); Mean Corpuscular Hgb Conc. 34.1 g/dL (32.0-36.0); Mean Corpuscular Volume 84.6 fL (80.0-100.0); Monocytes # (auto) 0.7 uL; Monocytes % (auto) 7.2 % (0.0-12.0); Neutrophils # (auto) 7.2 uL; Neutrophils % (auto) 70.5 % (37.0-80.0); Platelet Count (auto) 222 10^3/uL (140-450); Red Blood Cells 4.58 10^6/uL (4.0-5.20); Red Cell Distribution Width 13.7 % (11.8-14.3); White Blood Cell 10.1 10^3/uL (4.4-10.8)
[2019-09-12 07:09] LABS: INR 1.18 (0.9-1.15); Partial Thromboplastin Time 28.4 sec (23.64-32.05)
[2019-09-12 07:11] LABS: Albumin 3.4 g/dL (3.4-5.0); BUN/Creatinine Ratio 4.8; Calcium 8.3 mg/dL (8.5-10.1); Potassium 3.7 mmol/L (3.5-5.1)
[2019-09-12 07:12] LABS: Bilirubin, Total 0.7 mg/dL (0.2-1.0); Total Protein 7.1 g/dL (6.4-8.2)
--- NOTE | 2019-09-12 08:30 | NUR ---
Opening Shift Note Assumed care of patient, awake and alert. No S/S of distress/SOB or pain. Instructed on POC and to call for assist PRN, will continue to monitor for changes Q1hr and PRN.
--- NOTE | 2019-09-12 08:34 | NUR ---
Respiratory note: PT IS AWAKE, AND ALERT. NO RESPIRATORY DISTRESS NOTED. SPO2 97% ON RA, HR 85, RR 20, BS CLEAR BILATERALLY. NO PRN MEDNEB TX INDICATED AT THIS TIME. PT INFORMED TO PUSH CALL BUTTON IF INCREASED WOB, SOB, OR WHEEZING OCCURS.
[2019-09-12] MEDS: cefTRIAXone 1GM/50ML D5W 50 ML IV SCH (09:24)
[2019-09-12] MEDS: SOD CHL 0.9%/ KCL 20MEQ 1,000 ML IV SCH ×2 (09:24→20:36)
[2019-09-12] MEDS: FAMOTIDINE (10MG/ML) 2ML VL IV SCH ×2 (09:24→22:02)
--- NOTE | 2019-09-12 11:05 | NUR ---
updated pt on MD assigned today and updated pt that i will ask md for stronger pain management and a stool softener
--- NOTE | 2019-09-12 12:45 | NUR ---
MD SY ROUNDED ON PT NEW ORDERS NOTED
[2019-09-12] MEDS ORDERED: ALPRAZolam 0.5 MG TAB PO PRN (13:00)
[2019-09-12] MEDS ORDERED: NICOTINE 21MG/24 HR TOPICAL PATCH TD ONE (13:00)
--- NOTE | 2019-09-12 13:35 | NUR ---
ASSISTED PT TO BEDSIDE COMMODE TO URINATE INSTRUCTED PT WE NEED TO WALK PER MD WILLIS
[2019-09-12] MEDS: HYDROmorphone HCL 2 MG/ML VL IV PRN ×3 (13:47→22:02)
[2019-09-12] MEDS ORDERED: ACETAMINOPHEN/CODEINE#3 (300/30mg) TAB PO PRN (14:30)
--- NOTE | 2019-09-12 18:44 | NUR ---
EMPTIED PT TALA DRAIN NOTED 50ML OUTOT SEROUS FLUID
--- NOTE | 2019-09-12 19:50 | NUR ---
open note assumed care of pt. pt ambulating with family. pt on room air no distress noted or expressed. this nurse will update pt on plan of care at later time.
[2019-09-12] MEDS: DOCUSATE SOD 100 MG CAP PO SCH (22:02)
--- NOTE | 2019-09-12 22:47 | NUR ---
Respiratory note: PT SEEN AND ASSESSED FOR PRN MED NEB TX AT 2247. TX IS NOT INDICATED AT THIS TIME. PT DISPLAYING NO SIGNS O OF DISTRESS, SHE STATES THAT SHE FEELS FINE. HR 99 RR 20 POX 97% ON ROOM AIR. PT AWARE TO CALL FOR RT IF ANY DISTRESS OCCURS.
[2019-09-13] MEDS: ACCU-CHEK COMFORT CURVE STRIP VI SCH ×4 (00:20→17:30)
[2019-09-13] MEDS: InsuLIN REG 1unit/0.01ml Soln (100units/ml) SC SCH ×4 (00:20→17:30)
[2019-09-13] MEDS: HYDROmorphone HCL 2 MG/ML VL IV PRN ×4 (02:46→19:40)
[2019-09-13 04:50] VITALS: BP 122/78
[2019-09-13] MEDS: SOD CHL 0.9%/ KCL 20MEQ 1,000 ML IV SCH (05:45)
[2019-09-13] MEDS: metroNIDAZOLE 500MG/100ML 100 ML IV SCH ×3 (06:30→22:00)
--- NOTE | 2019-09-13 06:59 | NUR ---
emptied 25ml serosanguineous fluid drained from bulb.
[2019-09-13 07:08] LABS: Basophils # (auto) 0.1 uL; Basophils % (auto) 0.9 % (0.0-2.0); Eosinophils # (auto) 0.1 uL; Eosinophils % (auto) 1.6 % (0.0-7.0); Hematocrit 41.5 % (36.0-46.0); Lymphocytes # (auto) 2.1 uL; Lymphocytes % (auto) 25.1 % (10.0-50.0); Mean Corpuscular Hemoglobin 28.6 pg (28.0-32.0); Mean Corpuscular Hgb Conc. 33.7 g/dL (32.0-36.0); Monocytes # (auto) 0.7 uL; Monocytes % (auto) 8.2 % (0.0-12.0); Neutrophils # (auto) 5.3 uL; Neutrophils % (auto) 64.2 % (37.0-80.0); Platelet Count (auto) 224 10^3/uL (140-450); Red Blood Cells 4.89 10^6/uL (4.0-5.20); Red Cell Distribution Width 13.7 % (11.8-14.3); White Blood Cell 8.3 10^3/uL (4.4-10.8)
[2019-09-13 07:26] LABS: BUN/Creatinine Ratio 2.6; Calcium 8.8 mg/dL (8.5-10.1); Potassium 3.8 mmol/L (3.5-5.1)
--- NOTE | 2019-09-13 08:00 | NUR ---
Opening Shift Note Assumed care of patient, awake, alert and oriented X4. No S/S of distress/SOB, complains of abdominal pain, 8/, informed will medicate with prescribed pain medication. IV to right antecubital, 20 gauge, patent and infusing 0.9% NS w/ 20 meq KCL @ 100 ml/hr. Medial abdominal incisions X 3 with dressings clean, dry and intact, superior umbilical TALA x1, draining serosanguineous drainage, abdominal binder in place. Instructed on POC and to call for assist PRN, verbalized understanding. Bed locked, in lowest position, call light within reach, will continue to monitor for changes Q1hr and PRN.
[2019-09-13 09:00] VITALS: BP 144/90
[2019-09-13] MEDS: cefTRIAXone 1GM/50ML D5W 50 ML IV SCH (09:14)
[2019-09-13] MEDS: FAMOTIDINE (10MG/ML) 2ML VL IV SCH ×2 (10:01→22:00)
[2019-09-13] MEDS: DOCUSATE SOD 100 MG CAP PO SCH ×2 (10:01→22:00)
[2019-09-13] MEDS: NICOTINE 21MG/24 HR TOPICAL PATCH TD SCH (10:02)
--- NOTE | 2019-09-13 11:15 | NUR ---
ROUNDS Dr Flores at bedside for rounds, new orders received and followed through. Patient updated on plan of care, verbalized understanding.
[2019-09-13] MEDS ORDERED: SOD CHL 0.9%/ KCL 20MEQ 1,000 ML IV SCH (11:30)
[2019-09-13 13:00] VITALS: BP 143/86
[2019-09-13 17:00] VITALS: BP 119/65
--- NOTE | 2019-09-13 18:55 | NUR ---
TALA 25 ml sanguinous drainage emptied from TALA
--- NOTE | 2019-09-13 19:05 | NUR ---
ASSESSED PT @ THIS TIME FOR PRN MED NEB TX. PT IS AWAKE AND ALERT AND RESTING COMFORTABLY IN BED. SHE STATES HER BREATHING IS DOING FINE. NO DISTRESS NOTED. CURRENTLY ON R/A SPO2 95%, HR 121, RR 18 AND BS ARE CLEAR T/O. SHE IS AWARE TO CALL IF SHE FEELS SOB.
--- NOTE | 2019-09-13 19:18 | NUR ---
Care endorsed to JILL Badillo, night nurse.
--- NOTE | 2019-09-13 19:45 | NUR ---
open note assumed care of pt. upon entering room pt awake, alert and oriented x4. pt on room air no distress noted or expressed. pt updated on plan of care, no questions at this time. bed locked, low and 2x rails up. pt has TALA drain in place midline at level of umbilicus, dressings are intact. call light in reach, encouraged to call as needed. this nurse will round q1hr and prn.
[2019-09-13 21:00] VITALS: BP 128/86
[2019-09-14] MEDS: HYDROmorphone HCL 2 MG/ML VL IV PRN ×3 (00:41→11:00)
[2019-09-14 05:00] VITALS: BP 126/83
[2019-09-14] MEDS: InsuLIN REG 1unit/0.01ml Soln (100units/ml) SC SCH ×3 (06:00→12:00)
[2019-09-14] MEDS: metroNIDAZOLE 500MG/100ML 100 ML IV SCH ×2 (06:27→13:53)
[2019-09-14] MEDS: ACCU-CHEK COMFORT CURVE STRIP VI SCH ×3 (06:27→12:05)
--- NOTE | 2019-09-14 07:03 | NUR ---
15ML serosanguineous fluid emptied from TALA
--- NOTE | 2019-09-14 08:00 | NUR ---
Opening Shift Note Assumed care of patient, awake, alert and oriented X4. No S/S of distress/SOB, complains of abdominal pain, 8/, informed will medicate with prescribed pain medication. IV to left forearm, 22 gauge, patent and infusing 0.9% NS w/ 20 meq KCL @ 100 ml/hr. Medial abdominal incisions X 3 with dressings clean, dry and intact, superior umbilical TALA x1, draining serosanguineous drainage, abdominal binder in place. Instructed on POC and to call for assist PRN, verbalized understanding. Bed locked, in lowest position, call light within reach, will continue to monitor for changes Q1hr and PRN.
[2019-09-14 08:44] VITALS: BP 126/83
[2019-09-14 09:00] VITALS: BP 126/74
--- NOTE | 2019-09-14 09:17 | NUR ---
Respiratory note: ASSESSED PT @ THIS TIME FOR PRN MED NEB TX. PT IS AWAKE AND ALERT AND RESTING COMFORTABLY IN BED. SHE STATES HER BREATHING IS DOING FINE. NO DISTRESS NOTED. CURRENTLY ON R/A SPO2 95%, HR 117, RR 16 AND BS ARE CLEAR T/O. SHE IS AWARE TO CALL IF SHE FEELS SOB.
[2019-09-14] MEDS: cefTRIAXone 1GM/50ML D5W 50 ML IV SCH (11:06)
[2019-09-14] MEDS: FAMOTIDINE (10MG/ML) 2ML VL IV SCH (11:06)
[2019-09-14] MEDS: DOCUSATE SOD 100 MG CAP PO SCH (11:06)
[2019-09-14] MEDS: NICOTINE 21MG/24 HR TOPICAL PATCH TD SCH (11:09)
[2019-09-14 13:00] VITALS: BP 118/81
--- NOTE | 2019-09-14 16:11 | NUR ---
Discharge instructions given as ordered. Encourage to follow up with PMD as instructed. All questions and concerns addressed. Patient verbalized understanding. Medication reconciliation form completed and copy given to patient. IV removed with catheter intact, pressure dressing applied. Patient educated on importance of and directions on how to empty TALA drain, correct return demonstration provided and verbalized understanding. Patient taken to vehicle via wheelchair with all personal belongings, accompanied by staff and family member. No distress noted at time of departure.
== END 2019-09-14 18:08 | disposition home or self-care (01) | DRG 343 ==
LOC: ER 10:53 → OVERFLOW 10:54 → WEST WING 17:25
PROVIDERS: ADMIT Nurse Practitioner Acute Care; ATTEND Internal Medicine
PROC: 0DTJ4ZZ Resection of Appendix, Percutaneous Endoscopic Approach (ICD-10-PCS; principal; 2019-09-11 14:36)
DX: K35.80 Unspecified acute appendicitis (principal); J44.9 Chronic obstructive pulmonary disease, unspecified; I10 Essential (primary) hypertension; G89.29 Other chronic pain; F20.9 Schizophrenia, unspecified; F17.210 Nicotine dependence, cigarettes, uncomplicated; E66.9 Obesity, unspecified; E11.9 Type 2 diabetes mellitus without complications; F32.9 Major depressive disorder, single episode, unspecified; F41.9 Anxiety disorder, unspecified; M19.90 Unspecified osteoarthritis, unspecified site; Z68.31 Body mass index [BMI] 31.0-31.9, adult; Z79.84 Long term (current) use of oral hypoglycemic drugs; Z88.1 Allergy status to other antibiotic agents; Z79.899 Other long term (current) drug therapy; Z82.49 Family history of ischemic heart disease and other diseases of the circulatory system; Z82.5 Family history of asthma and other chronic lower respiratory diseases; Z83.3 Family history of diabetes mellitus; Z98.51 Tubal ligation status
CPT/HCPCS: 36415; 71045; 74176; 80048; 80053; 81001; 82962; 83690; 85025; 85610; 85730; 86850; 86900; 86901; 93005; 96365; 96375; G0378; J0330; J0696; J1815; J1885; J2250; J2405; J2543; J3490

== ENCOUNTER 2019-09-23 13:12 | Emergency (ER) | payer BC, MEDICAID ==
[~2019-09-23] VITALS: Ht 180.3 cm; Wt 74.4 kg
[2019-09-23 14:16] LABS: Basophils # (auto) 0 uL; Basophils % (auto) 0.2 % (0.0-2.0); Eosinophils # (auto) 0.1 uL; Eosinophils % (auto) 0.9 % (0.0-7.0); Hematocrit 40.5 % (36.0-46.0); Hemoglobin 13.3 g/dL (12.2-16.2); Lymphocytes # (auto) 2.6 uL; Lymphocytes % (auto) 29.6 % (10.0-50.0); Mean Corpuscular Hemoglobin 28.1 pg (28.0-32.0); Mean Corpuscular Hgb Conc. 32.8 g/dL (32.0-36.0); Mean Corpuscular Volume 85.6 fL (80.0-100.0); Monocytes # (auto) 0.5 uL; Monocytes % (auto) 5.4 % (0.0-12.0); Neutrophils # (auto) 5.5 uL; Neutrophils % (auto) 63.9 % (37.0-80.0); Nucleated Red Blood Cells % 0.1 %; Platelet Count (auto) 301 10^3/uL (140-450); Red Blood Cells 4.73 10^6/uL (4.0-5.20); Red Cell Distribution Width 13.7 % (11.8-14.3); White Blood Cell 8.7 10^3/uL (4.4-10.8)
[2019-09-23 14:31] LABS: INR 1.03 (0.9-1.15); Partial Thromboplastin Time 23.4 sec (23.64-32.05)
[2019-09-23 14:36] LABS: Albumin 3.7 g/dL (3.4-5.0); Anion Gap 5 (5-15); Blood Urea Nitrogen 6 mg/dL (7-18); Calcium 9.3 mg/dL (8.5-10.1); Carbon Dioxide 27 mmol/L (21-32); Chloride 110 mmol/L (98-107); Glucose 90 mg/dL (74-106); Potassium 3.7 mmol/L (3.5-5.1); Sodium 142 mmol/L (136-145)
[2019-09-23 14:42] LABS: Alanine Aminotransferase 19 U/L (13-56); Alkaline Phosphatase 56 U/L (45-117); Aspartate Aminotransferase 12 U/L (15-37); BUN/Creatinine Ratio 7.6; Bilirubin, Total 0.3 mg/dL (0.2-1.0); GFR African American 99 mL/min; GFR Non-African American 82 mL/min; Total Protein 8.1 g/dL (6.4-8.2)
[2019-09-23] MEDS ORDERED: MORPHINE SULFATE 4 MG/ML SYR/VIAL IV ONE (23:00)
[2019-09-23] MEDS ORDERED: ONDANSETRON HCL 4 MG/2 ML VIAL IV ONE (23:00)
[2019-09-24 04:46] LABS: Urine Bacteria NONE SEEN /hpf (None Seen); Urine Blood Negative /uL (Negative); Urine Specific Gravity 1.008 (1.001-1.035); Urine WBC 3 /hpf (0 - 5)
[2019-09-24 05:00] VITALS: BP 117/82
== END 2019-09-24 05:22 | disposition home or self-care (01) ==
LOC: ER 13:12
DX: M51.36 Other intervertebral disc degeneration, lumbar region (principal); G89.29 Other chronic pain; M54.9 Dorsalgia, unspecified; J44.9 Chronic obstructive pulmonary disease, unspecified; E11.9 Type 2 diabetes mellitus without complications; M19.90 Unspecified osteoarthritis, unspecified site; F17.210 Nicotine dependence, cigarettes, uncomplicated; F12.10 Cannabis abuse, uncomplicated; Z98.51 Tubal ligation status; Z79.899 Other long term (current) drug therapy; Z88.1 Allergy status to other antibiotic agents
CPT/HCPCS: 36415; 80053; 81001; 82962; 83605; 84484; 85025; 85610; 85730; 87040; 87086; 93971; 96374; 96375; 99284; J2270; J2405

== ENCOUNTER 2022-05-22 12:14 | Emergency (ER) | payer BC, MEDICAID ==
[~2022-05-22] VITALS: Ht 152.4 cm; Wt 63.6 kg
[~2022-05-22 12:14] MED LIST changes: +CYCL-839 PO; -CYCL1TAB18 PO; +ESCI-34 PO; -ESCI20TA51 PO; -QUET400T12 PO; +QUET400T13 PO
[2022-05-22] MEDS ORDERED: PROMETHAZINE HCL 25 MG/ML 1ML IM ONE (13:30)
[2022-05-22] MEDS ORDERED: HYDROmorphone HCL 2 MG/ML VL/or syr IM ONE (13:30)
[2022-05-22 14:20] VITALS: BP 127/81
== END 2022-05-22 14:28 | disposition home or self-care (01) ==
LOC: ER 12:14
DX: G89.29 Other chronic pain (principal); M54.59 Other low back pain; Z79.899 Other long term (current) drug therapy; Z88.1 Allergy status to other antibiotic agents
CPT/HCPCS: 96372; 99284; J1170; J2550